=== PATIENT | female | born 1955 | race Caucasian/White ===

== ENCOUNTER → 2016-07-31 | Outpatient (CLI) | payer OTHER ==
--- NOTE | 2016-08-01 09:30 | MA ---
Digital screening mammogram bilateral with tomosynthesis 07/31/2016 14:41 History:Routine screening. Comparison: July 29, 2015, June 19, 2014, June 11, 2013. Technique: Standard digital cephalocaudal and tomosynthesis mediolateral oblique projections are obt ained. This examination is processed by the [employer] computer-aided detection system. Findings: Breast density: Type II No spiculated masses, malignant type microcalcifications, or mammographic features of malignancy tye ntified. Benign-appearing calcifications are present bilaterally, unchanged. IMPRESSION: No mammographic features of malignancy. BI-RADS 2: Benign Finding. Recommendation: Routine screening mammography in one year. [facility] will send a result letter to the patient. Negative mammography should not preclude additional workup of a clinically suspicious finding. The patient's information is entered into a reminder system with a target due date for her next mammo gram.
== END ==
LOC: FIMAGING 14:40
DX: Z12.31 Encounter for screening mammogram for malignant neoplasm of breast (principal)
CPT/HCPCS: G0202